=== PATIENT | male | born 1980 | race American Indian/Alaskan Native ===

== ENCOUNTER 2020-03-10 05:09 | Emergency (ER) | payer MEDICAID ==
[~2020-03-10] VITALS: Ht 195.6 cm; Wt 86.2 kg
[2020-03-10 05:30] VITALS: BP_SYST 134
[2020-03-10] MEDS ORDERED: ASPIRIN 81 MG TAB.CHEW PO ONE (06:00)
[2020-03-10 06:26] LABS: CREATININE 1.13 mg/dL (0.55-1.30); POTASSIUM 3.8 mmol/L (3.5-5.1)
[2020-03-10 06:32] LABS: ALBUMIN 3.8 g/dL (3.4-4.8); BASOPHILS % (AUTO) 0.5 % (0.0-2.0); EOSINOPHILS # (AUTO) 0.4 K/uL (0.0-0.4); HEMATOCRIT 41.9 % (36-54); LYMPHOCYTES # (AUTO) 1.6 K/uL (1.0-5.5); LYMPHOCYTES % (AUTO) 20.2 % (20.5-51.5); MEAN CORPUSCULAR HEMOGLOBIN 29 pg (27-31); MEAN CORPUSCULAR HGB CONC 33 % (32-36); MEAN CORPUSCULAR VOLUME 88 fL (79.0-98.0); MONOCYTES # (AUTO) 0.6 K/uL (0.0-1.0); MONOCYTES % (AUTO) 7.4 % (1.7-9.3); NEUTROPHILS # (AUTO) 5.1 K/uL (1.8-7.7); NEUTROPHILS % (AUTO) 66.9 % (40.0-70.0); PLATELET COUNT (AUTO) 239 K/uL (130-430); RED BLOOD CELL COUNT(AUTO) 4.77 MIL/uL (4.2-6.2); RED CELL DISTRIBUTION WIDTH 14.2 % (9.0-15.0); TOTAL BILIRUBIN 0.4 mg/dL (0.0-1.0); WHITE BLOOD COUNT (AUTO) 7.7 K/uL (4.8-10.8)
[2020-03-10 07:38] VITALS: BP_SYST 134
== END 2020-03-10 07:38 | disposition home or self-care (01) ==
LOC: SED 05:09
DX: R07.89 Other chest pain (principal); F17.200 Nicotine dependence, unspecified, uncomplicated; Z87.442 Personal history of urinary calculi
CPT/HCPCS: 36415; 71045; 80053; 83880; 84484; 85025; 93005; 99285

== ENCOUNTER 2021-04-26 04:52 | Emergency (ER) | payer MEDICAID ==
[~2021-04-26] VITALS: Ht 195.6 cm; Wt 77.1 kg
[2021-04-26 04:59] VITALS: BP_SYST 130
--- NOTE | 2021-04-26 05:00 | NUR ---
PT ARRIVED BY WILLIAM FOR MEDICAL CLEARANCE. PT FOUND TRYING REMOVE A MANHOLE COVER AND TRYING TO GO INSIDE SEWERS. PT HAS NO PAIN. JUST NEED CLEARNCE FOR BOOKING. [id number]
--- NOTE | 2021-04-26 05:07 | NUR ---
ER at bedside examining patient.
--- NOTE | 2021-04-26 05:20 | NUR ---
Patient given written and verbal discharge instructions and verbalizes understanding. ER MD discussed with patient the results and treatment provided. Patient in stable condition. ID arm band removed. Patient educated on pain management and to follow up with PMD. Pain Scale 0/10. Opportunity for questions provided and answered. Medication side effect fact sheet provided.
[2021-04-26 05:21] VITALS: BP_SYST 130
== END 2021-04-26 05:21 | disposition home or self-care (01) ==
LOC: SED 04:52
DX: R05.9 Cough, unspecified (principal)
CPT/HCPCS: 99283